=== PATIENT | male | born 1965 | race Caucasian/White ===

== ENCOUNTER 2016-06-14 00:28 | Emergency (ER) | payer MEDICAID, OTHER ==
[~2016-06-14] VITALS: Ht 177.8 cm; Wt 71.5 kg
[~2016-06-14 00:28] MED LIST: ALBU18HF INHALATION; AZIT250T94 PO; BEN25 PO; IBUP800T25 PO; NAPR-260 PO
[2016-06-14 00:45] VITALS: Ht 177.8 cm; Wt 71.5 kg
--- NOTE | 2016-06-14 05:04 | ERD ---
ER Documentation Chief Complaint Date/Time DATE: 06/14/16 TIME: 05:00 Chief Complaint itching for a month anf flu like symptoms HPI 51-year-old male presents here in emergency department for multiple complaints. Patient is complaining of itching all over the body and rash all over the body, in between the webs of the hand, lower extremities, did not take any medications up with symptoms. Patient currently lives in a half-way. Patient denies any fever or chills. Patient has been having cough runny nose nasal congestion for 1 month now. Patient did not take medications to help with cough. Patient denies any chest pain or palpitations. Patient denies any sore throat or ear pain. Patient denies any dizziness. ROS All systems reviewed and are negative except as per history of present illness. Medications Home Meds Active Scripts Permethrin* (Elimite*) 5% Cr, 1 APPLIC TOP ONCE, #1 TUB 0 Refills APPLY ALL OVER BODY,LEAVE ON 8-12 HRS, REPEAT IN 1 WEEK Prov:AMADO PRESCOTT NP 06/14/16 Hydroxyzine Hcl* (Hydroxyzine Hcl*) 25 Mg Tablet, 25 MG PO Q8H Y for ITCHING, # 30 TAB Prov:AMADO PRESCOTT NP 06/14/16 Azithromycin* (Zithromax*) 250 Mg Tablet, 250 MG PO .ZPACK DIRECTED, #6 TAB TAKE 500 MG (2 TABS) THE FIRST DAY THEN 250 MG (1 TAB) DAYS 2-5 Prov:AMADO PRESCOTT NP 06/14/16 Albuterol Sulfate* (Proair HFA*) 8.5 Gm Hfa.aer.ad, 2 PUFF INH Q4H Y for WHEEZING AND SOB, #1 INHALER Prov:AMADO PRESCOTT NP 06/14/16 Fluticasone Propionate (Flonase Allergy Relief) 9.9 Ml [place].susp, 1 SPRAY NASAL BID, #1 BOTTLE TO EACH NOSTRIL Prov:AMADO PRESCOTT NP 06/14/16 Cetirizine Hcl* (Zyrtec*) 10 Mg Capsule, 10 MG PO DAILY, #30 TAB.CHEW Prov:AMADO PRESCOTT NP 06/14/16 Rhzfbdwcbje-B-Lmvmteomib Hb* (Guaifenesin* DM Syrup) 120 Ml Syrup, 10 ML PO Q4H Y for COUGH, #120 ML Prov:AMADO PRESCOTT NP 06/14/16 Diphenhydramine Hcl* (Benadryl*) 25 Mg Cap, 25 MG PO Q6, #30 CAP Prov:ALEENA CLARK MD 04/16/16 Azithromycin* (Zithromax*) 250 Mg Tablet, 250 MG PO DAILY for 4 Days, TAB Prov:ALEENA CLARK MD 04/16/16 Ibuprofen* (Motrin*) 800 Mg Tab, 800 MG PO Q6H Y for PAIN AND OR ELEVATED TEMP, #30 TAB Prov:CHARLES CARDOZA MD 03/11/16 Albuterol Sulfate* (Ventolin HFA*) 18 Gm Hfa.aer.ad, 2 PUFF INHALATION Q4H, #1 INHALER Prov:CHARLES CARDOZA MD 03/11/16 Naproxen* (Naprosyn*) 500 Mg Tablet, 500 MG PO BID Y for PAIN AND/OR INFLAMMATION, #30 TAB Prov:ALYSSA JIMÉNEZ MD 02/08/16 Allergies Allergies: Coded Allergies: Unknown: Unable to obtain (Unverified , 04/16/16) UNKNOWN ANTIBIOTICS PMhx/Soc History of Surgery: Yes (ABDOMINAL SURGERY) Anesthesia Reaction: No Hx Neurological Disorder: No Hx Respiratory Disorders: No Hx Cardiac Disorders: Yes (HTN, HIGH CHOLESTEROL) Hx Psychiatric Problems: No Hx Miscellaneous Medical Probl: No Hx Alcohol Use: No Hx Substance Use: No Hx Tobacco Use: No Smoking Status: Never smoker FmHx Family History: No coronary disease, No diabetes, No other Physical Exam Vitals Vital Signs Date Time Temp Pulse Resp B/P Pulse Ox O2 Delivery O2 Flow Rate FiO2 06/14/16 00:45 98.9 82 18 136/87 97 Physical Exam GENERAL: The patient is well developed and appropriate for usual state of health, in no apparent distress. HEENT: Atraumatic. Ears: Normal tympanic membrane, no erythema or bulging. No ear canal swelling. No ear discharge. Nose: Erythematous nasal turbinates with clear nasal discharge. Throat: oropharynx erythematous with postnasal drip. No tonsillar swelling or tonsillar exudates. No lymphadenopathy. CHEST: Clear to auscultation bilaterally. There are no rales, wheezes or rhonchi. HEART: Regular rate and rhythm. No murmurs, clicks, rubs or gallops. No S3 or S4. ABDOMEN: Soft, nontender and nondistended. Good bowel sounds. No rebound or guarding. No gross peritonitis. No gross organomegaly or masses. No Mario sign or McBurney point tenderness. BACK: No midline or flank tenderness. EXTREMITIES: Equal pulses bilaterally. There is no peripheral clubbing, cyanosis or edema. No focal swelling or erythema. Full range of motion. Grossly neurovascularly intact. NEURO: Alert and oriented. Cranial nerves 2-12 intact. Motor strength in all 4 extremities with 5/5 strength. Sensation grossly intact. Normal speech and gait. SKIN: Rectal Doppler rash noted all over the body, noted some burrowing in webs of hands. There is no apparent ecchymosis or petechia. The skin is warm and dry. HEMATOLOGIC AND LYMPHATIC: There is no evidence of excessive bruising or lymphedema. No gross cervical, axillary, or inguinal lymphadenopathy. Results 24 hrs PROCEDURE: Chest. CLINICAL INDICATION: Cough. TECHNIQUE: Single frontal view of the chest was obtained. COMPARISON: 04/16/2016. FINDINGS: The cardiac silhouette is within normal limits. The aortic arch is unremarkable. There is no focal consolidation, vascular congestion or pleural effusion. There is no pneumothorax. IMPRESSION: No evidence for active cardiopulmonary disease. .Josse Zavala MD, Date Time Electronically viewed and signed by .Josse Zavala MD, on 06/14/2016 05:38 .T/ CC: AMADO PRESCOTT [employer] Procedures/MDM Medical Decision Making: Patient symptoms are most likely consistent with chronic cough, possible viral allergic can be also atypical infection, since the patient has been having symptoms for 1 month now, patient will be in the trial of azithromycin.. There is low suspicion for Pneumonia at this time since patients lungs sounds are clear, patient O2 saturation is normal and patient doesnt show any respiratory distress. Patients chest xray doesnt show infiltrates or any other cardiopulmonary emergencies at this time. There is low suspicion for other cardiopulmonary emergencies at this time such as CHF, Pulmonary Embolism, Pneumothorax, Aortic Aneurysm or any other cardiopulmonary emergencies at this time. There is low suspicion for sepsis. Patient appears well and is hemodynamically stable. Patient does not have any fever. No symptoms of rash all over the body and itching most active consistent with scabies considering patient's living situation and the patient's physical examination. No symptoms of any other contagious rash at this time. The symptoms of sepsis at this time. The symptoms of any coagulopathies. Disposition: Home. Condition: Stable Prescriptions: Hydroxyzine, permethrin, guaifenesin DM, albuterol, Zyrtec, azithromycin Instructions: Patient is advised to take medications as prescribed. Patient is advised to rest. Patient advised to increase fluid intake, do humidifier at home and if possible, do salt water gargles. Patient is advised that if symptoms are worse, shortness of breath, uncontrolled fever, stridor, vomiting, worst signs and symptoms to return to emergency department immediately. Otherwise, patient is advised to follow up with primary doctor in 5-7 days. Departure Diagnosis: Primary Impression: Scabies Additional Impression: Cough Condition: Stable Patient Instructions: Cough, Chronic, Uncertain Cause, (Adult), Scabies Additional Instructions: Patient is advised to take medications as prescribed. Patient is advised to rest. Patient advised to increase fluid intake, do humidifier at home and if possible, do salt water gargles. Patient is advised that if symptoms are worse, shortness of breath, uncontrolled fever, stridor, vomiting, worst signs and symptoms to return to emergency department immediately. Otherwise, patient is advised to follow up with primary doctor in 5-7 days. AMADO PRESCOTT NP Jun 14, 2016 05:04
--- NOTE | 2016-06-14 05:38 | RADRPT ---
PROCEDURE: Chest. CLINICAL INDICATION: Cough. TECHNIQUE: Single frontal view of the chest was obtained. COMPARISON: 04/16/2016. FINDINGS: The cardiac silhouette is within normal limits. The aortic arch is unremarkable. There is no focal consolidation, vascular congestion or pleural effusion. There is no pneumothorax. IMPRESSION: No evidence for active cardiopulmonary disease. .Josse Zavala MD, MD Date Time Electronically viewed and signed by .Josse Zavala MD, on 06/14/2016 05:38 .T/
[2016-06-14] MEDS ORDERED: ALBU8.5H3 INH (05:40)
[2016-06-14] MEDS ORDERED: FLUT9.9S NASAL (05:40)
[2016-06-14] MEDS ORDERED: GUAI120S26 PO (05:40)
[2016-06-14] MEDS ORDERED: CETI10CA PO (05:40)
[2016-06-14] MEDS ORDERED: HYDR-3011 PO (05:40)
[2016-06-14] MEDS ORDERED: ELIM TOP (05:40)
[2016-06-14] MEDS ORDERED: AZIT250T94 PO (05:40)
[2016-06-14 05:54] VITALS: BP 132/78; PULSE 81; RESP 18
== END 2016-06-14 05:55 | disposition home or self-care (01) ==
LOC: FTE 00:28
DX: B86 Scabies (principal); R05 Cough; I10 Essential (primary) hypertension
CPT/HCPCS: 71010; Z7502

== ENCOUNTER 2016-11-19 18:17 | Emergency (ER) | payer OTHER ==
[~2016-11-19] VITALS: Ht 162.6 cm; Wt 73.0 kg
[~2016-11-19 18:17] MED LIST changes: +ALBU8.5H3 INH; +CETI10CA PO; +ELIM TOP; +FLUT9.9S NASAL; +GUAI120S26 PO; +HYDR-3011 PO
[2016-11-19 18:20] VITALS: Ht 162.6 cm; Wt 73.0 kg
[2016-11-19 21:13] LABS: ADD SCAN DIFF NO
[2016-11-19 21:15] LABS: BASOPHIL # 0.1 10^3/ul (0.0-0.1); BASOPHILS % 0.6 % (0.0-2.0); EOSINOPHILS # 0.4 10^3/ul (0.0-0.5); EOSINOPHILS % 4.4 % (0.0-7.0); HEMATOCRIT 42.5 % (42.0-52.0); HEMOGLOBIN 14.8 g/dl (14.0-18.0); LYMPHOCYTES # 3.8 10^3/ul (0.8-2.9); LYMPHOCYTES % 45.4 % (15.0-51.0); MEAN CORPUSCULAR HEMOGLOBIN 31.2 pg (29.0-33.0); MEAN CORPUSCULAR HGB CONC 34.8 g/dl (32.0-37.0); MEAN CORPUSCULAR VOLUME 89.7 fl (82.0-101.0); MEAN PLATELET VOLUME 10.9 fl (7.4-10.4); MONOCYTE # 0.9 10^3/ul (0.3-0.9); MONOCYTES % 10.9 % (0.0-11.0); NEUTROPHIL # 3.2 10^3/ul (1.6-7.5); NEUTROPHILS % 38.3 % (39.0-77.0); PLATELET COUNT 370 10^3/UL (140-415); RED BLOOD COUNT 4.74 10^6/ul (4.70-6.10); RED CELL DISTRIBUTION WIDTH 12.7 % (11.5-14.5); WHITE BLOOD COUNT 8.4 10^3/ul (4.8-10.8)
[2016-11-19 21:43] LABS: ALANINE AMINOTRANSFERASE 36 IU/L (13-69); ALBUMIN 4.6 g/dl (3.3-4.9); ALBUMIN/GLOBULIN RATIO 1.64; ALKALINE PHOSPHATASE 69 IU/L (42-121); ANION GAP 19 (8-16); ASPARTATE AMINO TRANSFERASE 31 IU/L (15-46); BILIRUBIN,INDIRECT 0.3 mg/dl (0-1.1); BILIRUBIN,TOTAL 0.3 mg/dl (0.2-1.3); BLOOD UREA NITROGEN 13 mg/dl (7-20); CALCIUM 9.5 mg/dl (8.4-10.2); CARBON DIOXIDE 30 mmol/L (21-31); CHLORIDE 102 mmol/L (97-110); CREATININE 0.77 mg/dl (0.61-1.24); GLUCOSE 87 mg/dl (70-220); POTASSIUM 3.7 mmol/L (3.5-5.1); SODIUM 147 mmol/L (135-144); TOTAL PROTEIN 7.4 g/dl (6.1-8.1)
[2016-11-19 21:55] LABS: TROPONIN-I < 0.012 ng/ml (0.00-0.12)
--- NOTE | 2016-11-19 23:17 | RADRPT ---
PROCEDURE: XR Chest. CLINICAL INDICATION: Chest pain TECHNIQUE: Single AP portable chest. COMPARISON: 06/14/2016 Chest x-ray FINDINGS: The cardiomediastinal silhouette is within normal limits of size. The lungs are clear without pleur al effusion or focal consolidation. No pneumothorax. The osseous structures and soft tissues are unr emarkable. IMPRESSION: 1. No evidence for active cardiopulmonary disease. RPTAT:AAJJ Nirmala Wright Physician Date Time Electronically viewed and signed by Nirmala Wright Physician on 11/19/2016 23:17 MAURISIO/
--- NOTE | 2016-11-20 00:10 | ERD ---
ER Documentation Chief Complaint Date/Time DATE: 11/20/16 TIME: 00:09 Chief Complaint PT with CP X 3 days, blurry vision. HPI This is a 51-year-old male, with a patch chest pain has been ongoing for the past 3 days. Pain is reproducible to touch mild to moderate intensity with no exacerbating or alleviating factors. Denies any fevers or chills. Denies any nausea or vomiting. Denies any other current complaints. Triage did say blurry vision, however patient admits to drinking heavily for the past 2-3 days ROS All systems reviewed and are negative except as per history of present illness. Medications Home Meds Discontinued Scripts Permethrin* (Elimite*) 5% Cr, 1 APPLIC TOP ONCE, #1 TUB 0 Refills APPLY ALL OVER BODY,LEAVE ON 8-12 HRS, REPEAT IN 1 WEEK Prov:AMADO PRESCOTT NP 06/14/16 Hydroxyzine Hcl* (Hydroxyzine Hcl*) 25 Mg Tablet, 25 MG PO Q8H Y for ITCHING, # 30 TAB Prov:AMADO PRESCOTT NP 06/14/16 Azithromycin* (Zithromax*) 250 Mg Tablet, 250 MG PO .ZPACK DIRECTED, #6 TAB TAKE 500 MG (2 TABS) THE FIRST DAY THEN 250 MG (1 TAB) DAYS 2-5 Prov:AMADO PRESCOTT NP 06/14/16 Albuterol Sulfate* (Proair HFA*) 8.5 Gm Hfa.aer.ad, 2 PUFF INH Q4H Y for WHEEZING AND SOB, #1 INHALER Prov:AMADO PRESCOTT NP 06/14/16 Fluticasone Propionate (Flonase Allergy Relief) 9.9 Ml [place].susp, 1 SPRAY NASAL BID, #1 BOTTLE TO EACH NOSTRIL Prov:AMADO PRESCOTT NP 06/14/16 Cetirizine Hcl* (Zyrtec*) 10 Mg Capsule, 10 MG PO DAILY, #30 TAB.CHEW Prov:AMADO PRESCOTT NP 06/14/16 Epavotvcqix-D-Rrpnlniebj Hb* (Guaifenesin* DM Syrup) 120 Ml Syrup, 10 ML PO Q4H Y for COUGH, #120 ML Prov:AMADO PRESCOTT NP 06/14/16 Diphenhydramine Hcl* (Benadryl*) 25 Mg Cap, 25 MG PO Q6, #30 CAP Prov:ALEENA CLARK MD 04/16/16 Azithromycin* (Zithromax*) 250 Mg Tablet, 250 MG PO DAILY for 4 Days, TAB Prov:ALEENA CLARK MD 04/16/16 Ibuprofen* (Motrin*) 800 Mg Tab, 800 MG PO Q6H Y for PAIN AND OR ELEVATED TEMP, #30 TAB Prov:CHARLES CARDOZA MD 03/11/16 Albuterol Sulfate* (Ventolin HFA*) 18 Gm Hfa.aer.ad, 2 PUFF INHALATION Q4H, #1 INHALER Prov:CHARLES CARDOZA MD 03/11/16 Naproxen* (Naprosyn*) 500 Mg Tablet, 500 MG PO BID Y for PAIN AND/OR INFLAMMATION, #30 TAB Prov:ALYSSA JIMÉNEZ MD 02/08/16 Allergies Allergies: Coded Allergies: Penicillins (Unverified Allergy, Unknown, 11/19/16) Tetracyclines (Unverified Allergy, Unknown, 11/19/16) PMhx/Soc Medical and Surgical Hx: pt denies Medical Hx History of Surgery: Yes (abd surgery) Anesthesia Reaction: No Hx Neurological Disorder: No Hx Respiratory Disorders: No Hx Cardiac Disorders: Yes (HTN, HIGH CHOLESTEROL) Hx Psychiatric Problems: No Hx Miscellaneous Medical Probl: No Hx Alcohol Use: No Hx Substance Use: No Hx Tobacco Use: No Smoking Status: Never smoker Physical Exam Vitals Vital Signs Date Time Temp Pulse Resp B/P Pulse Ox O2 Delivery O2 Flow Rate FiO2 11/19/16 23:15 51 16 129/82 98 Room Air 11/19/16 20:45 51 16 148/82 99 Room Air 11/19/16 18:20 98.3 77 20 125/72 98 Physical Exam Const: [] Head: Atraumatic Eyes: Normal Conjunctiva ENT: Normal External Ears, Nose and Mouth. Neck: Full range of motion..~ No meningismus. Resp: Clear to auscultation bilaterally Cardio: Regular rate and rhythm, no murmurs Abd: Soft, non tender, non distended. Normal bowel sounds Skin: No petechiae or rashes Back: No midline or flank tenderness Ext: No cyanosis, or edema Neur: Awake and alert Psych: Normal Mood and Affect Result Diagram: 11/19/16205411/19/162054 Results 24 hrs Laboratory Tests Test 11/19/16 20:55 White Blood Count 8.410^3/ul Red Blood Count 4.7410^6/ul Hemoglobin 14.8g/dl Hematocrit 42.5% Mean Corpuscular Volume 89.7fl Mean Corpuscular Hemoglobin 31.2pg Mean Corpuscular Hemoglobin Concent 34.8g/dl Red Cell Distribution Width 12.7% Platelet Count 53081^3/UL Mean Platelet Volume 10.9fl Neutrophils % 38.3% Lymphocytes % 45.4% Monocytes % 10.9% Eosinophils % 4.4% Basophils % 0.6% Nucleated Red Blood Cells % 0.0/100WBC Neutrophils # 3.210^3/ul Lymphocytes # 3.810^3/ul Monocytes # 0.910^3/ul Eosinophils # 0.410^3/ul Basophils # 0.110^3/ul Nucleated Red Blood Cells # 0.010^3/ul Sodium Level 147mmol/L Potassium Level 3.7mmol/L Chloride Level 102mmol/L Carbon Dioxide Level 30mmol/L Anion Gap 19 Blood Urea Nitrogen 13mg/dl Creatinine 0.77mg/dl Glucose Level 87mg/dl Calcium Level 9.5mg/dl Total Bilirubin 0.3mg/dl Direct Bilirubin 0.00mg/dl Indirect Bilirubin 0.3mg/dl Aspartate Amino Transf (AST/SGOT) 31IU/L Alanine Aminotransferase (ALT/SGPT) 36IU/L Alkaline Phosphatase 69IU/L Troponin I < 0.012ng/ml Total Protein 7.4g/dl Albumin 4.6g/dl Globulin 2.80g/dl Albumin/Globulin Ratio 1.64 Lipase 107U/L Procedures/MDM EKG: Rate/Rhythm: Normal Sinus Rhythm QRS, ST, T-waves: No changes consistent w/ acute ischemia Impression: No evidence of ischemia or arrhythmia Chest X-ray 1V Interpreted by me: Soft Tissue: No acute abnormalities Bones: No acute abnormalities Mediastinum/Cardiac Silhouette/Lungs: No acute abnormalities Patient's thoracic symptoms have stabilized while in the department and are stable for outpatient follow up. Exam and work up not consistent w/ ischemia, arrhythmia, PE or dissection. Departure Diagnosis: Primary Impression: Chest pain Chest pain type: unspecified Qualified Code: R07.9 - Chest pain, unspecified type Condition: Stable CHERYL MACKEY Nov 20, 2016 00:10
[2016-11-20] MEDS ORDERED: NAPR-260 PO (00:11)
[2016-11-20 00:24] VITALS: BP 122/76; PULSE 46; RESP 18
== END 2016-11-20 00:24 | disposition home or self-care (01) ==
LOC: E/R 18:17
DX: R07.9 Chest pain, unspecified (principal); R40.2252 Coma scale, best verbal response, oriented, at arrival to emergency department; I10 Essential (primary) hypertension; R40.2142 Coma scale, eyes open, spontaneous, at arrival to emergency department; R40.2362 Coma scale, best motor response, obeys commands, at arrival to emergency department
CPT/HCPCS: 36415; 71010; 80053; 83690; 84484; 85025; 93005; Z7502